=== PATIENT | male | born 1935 | race Caucasian/White ===

== ENCOUNTER 2016-07-20 06:25 | Emergency (ER) | payer OTHER ==
[2016-07-20 07:03] LABS: BASOPHIL % 0.4 % (0-2); PLATELET COUNT 171 x10^3mcL (130-400); RED CELL DISTRIBUTION WIDTH 13.8 % (11.5-14.5)
[2016-07-20 07:10] LABS: CALCIUM 8.7 mg/dL (8.5-10.1); CARBON DIOXIDE 24.3 mmol/L (21-32); CHLORIDE SERUM 106 mmol/L (98-107); CREATININE SERUM 1.6 mg/dL (0.7-1.3); GLUCOSE SERUM 113 mg/dL (74-106); POTASSIUM SERUM 3.7 mmol/L (3.5-5.1); SODIUM SERUM 140 mmol/L (136-145)
[2016-07-20 07:22] LABS: ALKALINE PHOSPHATASE 83 U/L (46-116); ALT/SGPT 21 U/L (16-63); AST/SGOT 14 U/L (15-37); BILIRUBIN TOTAL 0.88 mg/dL (0.20-1.00); C REACTIVE PROTEIN 10.3 mg/dL (<=0.9); TOTAL PROTEIN, SERUM 6.9 g/dL (6.4-8.2)
[2016-07-20 07:23] LABS: ALBUMIN 3.2 g/dL (3.4-5.0)
[2016-07-20 07:27] LABS: T3 TOTAL 0.89 ng/mL
[2016-07-20 07:48] LABS: CK-MB < 0.5 ng/mL (0-3.6); CREATINE KINASE 59 U/L (39-308); FREE T4 1.43 ng/dL (0.76-1.46); FREE THYROXINE INDEX 3.6 ug/dL (1.4-4.5); T4(THYROXINE) 9.6 ug/dL (4.7-13.3)
[2016-07-20 08:20] LABS: ERYTHROCYTE SED RATE 113 mm/hr (0-20)
[2016-07-20 08:59] LABS: UA SPECIFIC GRAVITY 1.015 (1.005-1.035); microscopic required? YES; urine erythrocyte TRACE (NEGATIVE)
[2016-07-20 11:17] VITALS: BP 119/71
== END 2016-07-20 11:17 ==
LOC: ED 06:25
PROVIDERS: Specialist
DX: N39.0 Urinary tract infection, site not specified (principal); R07.89 Other chest pain; E66.9 Obesity, unspecified; I10 Essential (primary) hypertension; I73.9 Peripheral vascular disease, unspecified; I25.10 Atherosclerotic heart disease of native coronary artery without angina pectoris; Z98.890 Other specified postprocedural states; Z88.1 Allergy status to other antibiotic agents; Z88.8 Allergy status to other drugs, medicaments and biological substances
CPT/HCPCS: 83880; 84439; J0696; Q0092